=== PATIENT | male | born 1970 | race Caucasian/White ===

== ENCOUNTER 2021-03-29 22:33 | Emergency (ER) | payer OTHER, BC ==
[~2021-03-29] VITALS: Ht 165.1 cm; Wt 72.6 kg
[2021-03-29 22:43] VITALS: BP_SYST 167
[2021-03-29] MEDS ORDERED: HYDROcodone/ACETAMIN 5-325 MG TAB (NORCO/ VICODIN) ONE (23:37)
[2021-03-29] MEDS ORDERED: HYDROcodone/ACETAMIN 5-325 MG TAB (NORCO/ VICODIN) PO ONE (23:45)
[2021-03-30] MEDS ORDERED: PROCHLORPERAZINE EDISYLATE 10 MG/2 ML VIAL IVP ONE (01:00)
[2021-03-30] MEDS ORDERED: MORPHINE 4 MG INJ. 4 MG/ML VIAL IVP ONE (01:00)
[2021-03-30] MEDS ORDERED: HYDR-3917 PO (01:10)
[2021-03-30] MEDS ORDERED: NAPR-1169 PO (01:10)
[2021-03-30] MEDS ORDERED: PROCHLORPERAZINE EDISYLATE 10 MG/2 ML VIAL ONE (01:12)
[2021-03-30 01:51] VITALS: BP_SYST 146
== END 2021-03-30 01:51 | disposition home or self-care (01) ==
LOC: SED 22:33
DX: S86.811A Strain of other muscle(s) and tendon(s) at lower leg level, right leg, initial encounter (principal); E11.9 Type 2 diabetes mellitus without complications; X50.0XXA Overexertion from strenuous movement or load, initial encounter; Y93.89 Activity, other specified; Y92.89 Other specified places as the place of occurrence of the external cause; Y99.8 Other external cause status
CPT/HCPCS: 93971; 96374; 96375; 99284; J0780; J2270